=== PATIENT | female | born 1960 | race Caucasian/White ===

== ENCOUNTER → 2024-04-09 08:05 | Outpatient (REF) | payer OTHER, SELFPAY | LOC: HWRAD 08:05 | PROVIDERS: ATTENDING PHYSICIAN Nurse Practitioner; FAMILY PHYSICIAN Family Medicine | DX: N99.3 Prolapse of vaginal vault after hysterectomy (principal); R31.1 Benign essential microscopic hematuria | CPT/HCPCS: 76770; 76856 ==